=== PATIENT | male | born 2000 | race American Indian/Alaskan Native ===

== ENCOUNTER 2021-03-17 16:01 | Emergency (ER) | payer OTHER ==
[2021-03-17] MEDS ORDERED: hydrALAZINE 20 MG/ML SDV IM STA (16:32)
[2021-03-17] MEDS ORDERED: Aspirin 81 MG Tab.Chew PO STA (16:32)
[2021-03-17] MEDS ORDERED: Ondansetron 4 MG Tab.DIS PO STA (16:33)
[2021-03-17] MEDS ORDERED: LORazepam 2 MG/ML SDV IM STA (17:15)
[2021-03-17] MEDS ORDERED: Sodium Chloride 0.9% 10 ML Syringe FLUSH PRN (17:22)
[2021-03-17] MEDS ORDERED: Adenosine 6 MG/2 ML SDV IVPUSH ONE ×2 (17:22→17:33)
--- NOTE | 2021-03-17 17:22 | EDM.PDOC ---
ED HPI GENERAL MEDICAL PROBLEM - General Chief Complaint: Cardiovascular Problem Stated Complaint: CHEST PAIN/NAUSEA Time Seen by Provider: 03/17/21 16:05 Source of Information: Reports: Patient, Family History Limitations: Reports: No Limitations - History of Present Illness INITIAL COMMENTS - FREE TEXT/NARRATIVE: Patient presented to the ED because of chest pain which started this morning. The pain is pressure type,3/10. there is no nausea,vomiting but has some dyspnea and no dizziness. He is taking Losartan 100 mg daily which he didn't take yet today. Bilateral Chest Pain Score (Numeric/FACES): 7 - Related Data Allergies Allergy/AdvReac Type Severity Reaction Status Date / Time No Known Allergies Allergy Verified 03/17/21 16:17 Home Meds: Home Meds Losartan [Cozaar] 100 mg PO BEDTIME 03/17/21 [History] Past Medical History Cardiovascular History: Reports: Hypertension Social & Family History - Family History Family Medical History: No Pertinent Family History - Tobacco Use Tobacco Use Status *Q: Never Tobacco User - Caffeine Use Caffeine Use: Reports: None - Recreational Drug Use Recreational Drug Use: No ED ROS GENERAL - Review of Systems Review Of Systems: See Below Constitutional: Reports: No Symptoms HEENT: Reports: No Symptoms Respiratory: Reports: No Symptoms Cardiovascular: Reports: Chest Pain Endocrine: Reports: No Symptoms GI/Abdominal: Reports: No Symptoms : Reports: No Symptoms Musculoskeletal: Reports: No Symptoms Skin: Reports: No Symptoms Neurological: Reports: No Symptoms Psychiatric: Reports: No Symptoms Hematologic/Lymphatic: Reports: No Symptoms Immunologic: Reports: No Symptoms ED EXAM, GENERAL - Physical Exam Exam: See Below Exam Limited By: No Limitations General Appearance: Alert, No Apparent Distress Eye Exam: Bilateral Eye: PERRL Ears: Normal External Exam, Normal Canal Nose: Normal Inspection, Normal Mucosa, No Blood Throat/Mouth: Normal Inspection, Normal Lips, Normal Teeth Head: Atraumatic, Normocephalic Neck: Normal Inspection, Supple, Non-Tender, Full Range of Motion Respiratory/Chest: No Respiratory Distress, Lungs Clear, Normal Breath Sounds, No Accessory Muscle Use, Chest Non-Tender Cardiovascular: Normal Peripheral Pulses, No JVD, No Murmur, Tachycardia GI/Abdominal: Normal Bowel Sounds, Soft, Non-Tender, No Organomegaly Back Exam: Normal Inspection, Full Range of Motion Extremities: Normal Inspection, Normal Range of Motion, Non-Tender Neurological: Alert, Oriented, CN II-XII Intact, Normal Cognition #1 Interpretation EKG Date: 03/17/21 Time: 16:06 Rhythm: NSR Rate (Beats/Min): 97 [place]: Normal P-Wave: Present QRS: Normal ST-T: Normal QT: Normal Comparison: NA - No Prior EKG EKG Interpretation Comments: NSR Course - Vital Signs Text/Narrative:: Lab/EKG was reviewed and discussed with patient and his mom Ativan 1 mg IV x1 Cardizem 25 mg IV x1-total given Labetalol 20 mg IV x1 Hydralazine 20 mg IM x1 Last Recorded V/S: Last Vital Signs Temp 37.1 C 03/17/21 16:01 Pulse 95 03/17/21 16:01 Resp 16 03/17/21 16:01 BP 171/104 H 03/17/21 16:01 Pulse Ox 97 03/17/21 16:01 - Orders/Labs/Meds Orders: Active Orders 24 hr Category Date Time Status Sodium Chloride 0.9% [Normal Saline] 1,000 ml Med 03/17/21 18:00 Active IV ASDIRECTED Sodium Chloride 0.9% [Saline Flush] Med 03/17/21 17:22 Active 10 ml FLUSH ASDIRECTED PRN Saline Lock Insert [OM.PC] Routine Oth 03/17/21 17:22 Ordered Medication Orders Sodium Chloride (Normal Saline) 1,000 mls @ 999 mls/hr IV ASDIRECTED VERONICA Sodium Chloride (Sodium Chloride 0.9% 10 Ml Syringe) 10 ml FLUSH ASDIRECTED PRN PRN Reason: Keep Vein Open Labs: Laboratory Tests 03/17/21 03/17/21 03/17/21 Range/Units 16:50 16:50 16:50 WBC 10.3 H (3.2-10.1) x10-3/uL RBC 5.48 (3.90-5.90) x10(6)uL Hgb 15.3 (12.9-17.7) g/dL Hct 46.6 (38.3-50.1) % MCV 85.0 (80.8-98.7) fL MCH 27.9 (27.0-33.3) pg MCHC 32.8 (28.7-35.3) g/dL RDW 15.9 H (12.4-15.0) % Plt Count 355 (117-477) x10(3)uL MPV 8.4 (6.7-11.0) fL Neut % (Auto) 71.4 (40.3-71.8) % Lymph % (Auto) 20.7 (15.8-45.3) % [place] % (Auto) 7.3 (5.5-15.2) % Eos % (Auto) 0.2 (0.1-6.8) % Baso % (Auto) 0.4 (0.3-3.8) % Neut # (Auto) 7.4 H (1.7-6.9) x10-3/uL Lymph # (Auto) 2.1 (0.5-4.5) x10-3/uL [place] # (Auto) 0.8 (0.0-1.2) x10-3/uL Eos # (Auto) 0.0 (0.0-0.6) x10-3/uL Baso # (Auto) 0.0 (0.0-0.3) x10-3/uL Sodium 140 (135-145) mmol/L Potassium 5.0 (3.5-5.3) mmol/L Chloride 106 (100-110) mmol/L Carbon Dioxide 24 (21-32) mmol/L BUN 9 (7-18) mg/dL Creatinine 1.7 H (0.70-1.30) mg/dL Est Cr Clr Drug Dosing 76.08 mL/min Estimated GFR (MDRD) 52 L (>60) BUN/Creatinine Ratio 5.3 L (9-20) Glucose 105 (80-116) mg/dL Calcium 8.6 (8.6-10.2) mg/dL Total Bilirubin 0.3 (0.1-1.3) mg/dL AST 25 (5-25) IU/L ALT 35 (12-36) U/L Alkaline Phosphatase 123 H (56-112) IU/L Troponin I < 4.0 L (4.0-60.3) pg/mL Total Protein 7.3 (6.0-8.0) g/dL Albumin 2.2 L (3.5-5.2) g/dL Globulin 5.1 g/dL Albumin/Globulin Ratio 0.4 Meds: Medications Generic Name Dose Route Start Last Admin Trade Name Chandler PRN Reason Stop Dose Admin Sodium Chloride 1,000 mls @ 999 mls/hr 03/17/21 18:00 Normal Saline IV ASDIRECTED VERONICA Sodium Chloride 10 ml 03/17/21 17:22 Sodium Chloride 0.9% 10 Ml Syringe FLUSH ASDIRECTED PRN Keep Vein Open Discontinued Medications Generic Name Dose Route Start Last Admin Trade Name Chandler PRN Reason Stop Dose Admin Adenosine 6 mg 03/17/21 17:22 03/17/21 17:29 Adenosine 6 Mg/2 Ml Sdv IVPUSH 03/17/21 17:23 6 mg NOW ONE Administration Adenosine 12 mg 03/17/21 17:33 03/17/21 17:38 Adenosine 6 Mg/2 Ml Sdv IVPUSH 03/17/21 17:34 12 mg NOW ONE Administration Aspirin 324 mg 03/17/21 16:32 03/17/21 16:40 Aspirin 81 Mg Tab.Chew PO 03/17/21 16:33 324 mg NOW STA Administration Diltiazem HCl 15 mg 03/17/21 17:41 03/17/21 17:26 Diltiazem 25 Mg/5 Ml Sdv IVPUSH 03/17/21 17:42 15 mg NOW STA Administration Diltiazem HCl 10 mg 03/17/21 17:43 03/17/21 17:30 Diltiazem 25 Mg/5 Ml Sdv IVPUSH 03/17/21 17:44 10 mg ONETIME ONE Administration Hydralazine HCl 20 mg 03/17/21 16:32 03/17/21 16:41 Hydralazine 20 Mg/Ml Sdv IM 03/17/21 16:33 20 mg NOW STA Administration Labetalol HCl 20 mg 03/17/21 17:58 03/17/21 18:08 Labetalol 20 Mg/4 Ml Syringe IVPUSH 03/17/21 17:59 20 mg NOW STA Administration Protocol Labetalol HCl 20 mg 03/17/21 18:18 Labetalol 20 Mg/4 Ml Syringe IVPUSH 03/17/21 18:19 NOW STA Protocol Lorazepam 1 mg 03/17/21 17:15 Lorazepam 2 Mg/Ml Sdv IM 03/17/21 17:16 NOW STA Lorazepam 1 mg 03/17/21 17:24 03/17/21 17:32 Lorazepam 2 Mg/Ml Sdv IVPUSH 03/17/21 17:25 1 mg NOW STA Administration Ondansetron HCl 4 mg 03/17/21 16:33 03/17/21 16:41 Ondansetron 4 Mg Tab.Dis PO 03/17/21 16:34 4 mg NOW STA Administration Departure - Departure Time of Disposition: 19:00 Disposition: Home, Self-Care 01 Condition: Good Clinical Impression: Chest pain, Hypertension, CKD (chronic kidney disease) Instructions: Nonspecific Chest Pain, Adult, [id number], Hypertension, Adult, [id number], Chronic Kidney Disease, Adult, [id number] Referrals: PCP,None [Primary Care Provider] - Forms: ED Department Discharge Additional Instructions: Please read discharge instructions on chest pain,hypertension and chronic kidney disease Take your Losartan every morning instead at night Keep your appointment to se your kidney specialist soon Sepsis Event Note (ED) - Evaluation Sepsis Screening Result: No Definite Risk - Focused Exam Vital Signs: Vital Signs Temp Pulse Resp BP Pulse Ox 03/17/21 16:01 37.1 C 95 16 171/104 H 97 - My Orders Last 24 Hours: My Active Orders 03/17/21 17:22 Sodium Chloride 0.9% [Saline Flush] 10 ml FLUSH ASDIRECTED PRN Saline Lock Insert [OM.PC] Routine 03/17/21 18:00 Sodium Chloride 0.9% [Normal Saline] 1,000 ml IV ASDIRECTED - Assessment/Plan Last 24 Hours: My Active Orders 03/17/21 17:22 Sodium Chloride 0.9% [Saline Flush] 10 ml FLUSH ASDIRECTED PRN Saline Lock Insert [OM.PC] Routine 03/17/21 18:00 Sodium Chloride 0.9% [Normal Saline] 1,000 ml IV ASDIRECTED
[2021-03-17] MEDS ORDERED: LORazepam 2 MG/ML SDV IVPUSH STA (17:24)
[2021-03-17] MEDS ORDERED: Diltiazem 25 MG/5 ML SDV IVPUSH STA (17:41)
[2021-03-17] MEDS ORDERED: Diltiazem 25 MG/5 ML SDV IVPUSH ONE (17:43)
[2021-03-17] MEDS ORDERED: Labetalol 20 MG/4 ML Syringe IVPUSH STA ×2 (17:58→18:18)
[2021-03-17] MEDS ORDERED: Sodium Chloride 0.9% 1,000 ML IV SCH (18:00)
== END 2021-03-17 19:10 | disposition home or self-care (01) ==
LOC: FB.ED 16:01
DX: R07.9 Chest pain, unspecified (principal); I12.9 Hypertensive chronic kidney disease with stage 1 through stage 4 chronic kidney disease, or unspecified chronic kidney disease; N18.9 Chronic kidney disease, unspecified; Z79.899 Other long term (current) drug therapy
CPT/HCPCS: 36415; 80053; 84484; 85025; 96372; 96374; 96375; 99285; A9270; J0153; J0360; J2060; J3490